=== PATIENT | female | born 1970 | race Two or more races ===

== ENCOUNTER 2020-04-26 06:00 | Day surgery (SDC) | payer OTHER ==
[~2020-04-26 06:00] MED LIST: MULTIVITAMINS1 EAC9 PO
== END 2020-04-26 23:50 | disposition home or self-care (01) ==
LOC: CIR.AMB 06:00
PROVIDERS: ATTEND Surgery
DX: C50.212 Malignant neoplasm of upper-inner quadrant of left female breast (principal); N62 Hypertrophy of breast; Z20.828 Contact with and (suspected) exposure to other viral communicable diseases

== ENCOUNTER → 2020-05-10 | Outpatient (CLI) | payer OTHER | END | disposition home or self-care (01) | LOC: SONOGRAMA 13:32 | PROVIDERS: ATTEND Surgery | DX: C50.412 Malignant neoplasm of upper-outer quadrant of left female breast (principal); N60.12 Diffuse cystic mastopathy of left breast; N60.11 Diffuse cystic mastopathy of right breast ==

== ENCOUNTER 2020-05-30 14:33 | Outpatient (CLI) | payer OTHER | END 2020-05-30 14:40 | disposition home or self-care (01) | LOC: SONOGRAMA 14:33 | PROVIDERS: ATTEND Internal Medicine | DX: D25.1 Intramural leiomyoma of uterus (principal); M85.00 Fibrous dysplasia (monostotic), unspecified site ==